=== PATIENT | male | born 1960 | race Asian ===

== ENCOUNTER 2018-05-02 18:03 | Emergency (ER) | payer OTHER ==
[~2018-05-02] VITALS: Ht 170.2 cm; Wt 81.6 kg
[2018-05-02 18:07] VITALS: BP 154/101
--- NOTE | 2018-05-02 18:12 | NUR ---
Patient ambulated to bed 1. RN evaluating patient at bedside.
--- NOTE | 2018-05-02 18:20 | NUR ---
C/O LEFT GREATER TOE PAIN 02/18 SINCE THURSDAY WITH H/O GOUTE. +REDNESS, +SWELLING. DENIES INJURY, NUMBESS OR TINGLING. +CSM, CAP REFILL <3 SECONDS. HX: HIGH CHOLESTEROLE
--- NOTE | 2018-05-02 19:06 | NUR ---
REPORT GIVEN TO DAVE DESOUZA FOR CONTINUATION OF CARE
--- NOTE | 2018-05-02 19:10 | NUR ---
Pt report TAKEN FROM JOSE ACOSTA. Transfer of care at this time.
[2018-05-02] MEDS ORDERED: KETOROLAC 60 MG/2 ML VIAL IM ONE (19:40)
[2018-05-02] MEDS ORDERED: HYDROcodone/APAP 5/325 MG 1 TAB TAB PO ONE (19:40)
[2018-05-02 20:25] VITALS: BP 130/98
--- NOTE | 2018-05-02 20:25 | NUR ---
Patient discharged with v/s stable. Written and verbal after care instructions given and explained. Patient alert, oriented and verbalized understanding of instructions. Ambulatory with steady gait. All questions addressed prior to discharge. ID band removed. Patient advised to follow up with PMD. Rx of INDOCIN AND COLCHICINE given. Patient educated on indication of medication including possible reaction and side effects. Opportunity to ask questions provided and answered.
== END 2018-05-02 20:25 | disposition home or self-care (01) ==
LOC: MED 18:03
DX: M10.072 Idiopathic gout, left ankle and foot (principal); E78.00 Pure hypercholesterolemia, unspecified
CPT/HCPCS: 96372; 99283; J1885